=== PATIENT | male | born 1940 | race American Indian/Alaskan Native ===

== ENCOUNTER 2018-02-24 09:08 | Day surgery (SDC) | payer MEDICARE ==
[2018-02-24] MEDS ORDERED: NACL 0.9% 1000 ML 1,000 ML ONE (09:47)
[2018-02-24 09:55] VITALS: BP 129/59
[2018-02-24] MEDS ORDERED: NACL 0.9% 1000 ML 1,000 ML IV SCH (10:17)
== END 2018-02-24 09:09 | disposition home or self-care (01) ==
LOC: CATHLABREC 09:08 → EDSTATUS 09:15
PROVIDERS: ATTEND Surgery Vascular Surgery
DX: I71.4 Abdominal aortic aneurysm, without rupture (principal); I25.10 Atherosclerotic heart disease of native coronary artery without angina pectoris; I10 Essential (primary) hypertension; E78.00 Pure hypercholesterolemia, unspecified; Z53.8 Procedure and treatment not carried out for other reasons; Z79.4 Long term (current) use of insulin; Z79.899 Other long term (current) drug therapy; Z91.041 Radiographic dye allergy status
CPT/HCPCS: 36415; 82565; 84520; 96360; 96361; J7030